=== PATIENT | male | born 1970 | race African-American/Black ===

== ENCOUNTER 2019-03-28 11:56 | Emergency (ER) | payer BC ==
[2019-03-28 14:08] LABS: #Eosinphils 0.2 thou/uL (0.0-0.7); #Lymphocytes 1.8 thou/uL (1.20-3.40); #Monocytes 0.5 thou/uL (0.11-0.59); #Neutrophils 2.1 thou/uL (1.40-6.50); %Basophils 0.9 % (0.0-1.0); %Eosinophils 4.4 % (0.0-10.0); %Lymphocytes 39.3 % (21.0-51.0); %Monocytes 10.1 % (0.0-10.0); %Neutrophils 45.4 % (42.0-75.0); Hemoglobin 14.6 g/dL (14.0-18.0); Mean Corpuscular HGB CONC 32.6 g/dL (32.0-36.0); Mean Corpuscular Hemoglobin 29.4 pg (27.0-31.0); Mean Corpuscular Volume 90.3 fL (78.0-98.0); Mean Platelet Volume 9.5 fL (7.4-10.4); Platelet Count 129 thou/uL (130-400); RBC Distribution Width 11.7 % (11.5-14.5); Red Blood Cell (RBC) Count 4.96 mill/uL (4.70-6.10); White Blood Cell (WBC) Count 4.7 thou/uL (4.8-10.8)
[2019-03-28 14:13] LABS: PTT 26.5 SEC (22.9-36.1); Prothrombin Time 13.4 SEC (12.0-14.7)
[2019-03-28 14:28] LABS: Anion Gap 11 mmol/L (10-20); BUN (Urea Nitrogen) 11 mg/dL (8.9-20.6); Bilirubin, Total 0.7 mg/dL (0.2-1.2); Calc. Creatinine Clearance 0 mL/min (70-130); Calcium 9.9 mg/dL (7.8-10.44); Carbon Dioxide 31 mmol/L (22-29); Chloride 104 mmol/L (98-107); Estimated GFR-MDRD 90; Glucose 81 mg/dL (70-105); Sodium 142 mmol/L (136-145)
[2019-03-28 14:29] LABS: ALT (SGPT) 25 U/L (8-55); AST (SGOT) 22 U/L (5-34); Albumin 4.4 g/dL (3.5-5.0); Alkaline Phosphatase 88 U/L (40-150); CK (CPK) 153 U/L (30-200); Protein, Total 7.4 g/dL (6.0-8.3)
== END 2019-03-28 16:05 | disposition home or self-care (01) ==
LOC: ERS 11:56
DX: K62.3 Rectal prolapse (principal); K64.4 Residual hemorrhoidal skin tags
CPT/HCPCS: 36415; 80053; 82550; 85025; 85610; 85730; 86850; 86900; 86901; 93005; 94760